=== PATIENT | female | born 1995 | race Caucasian/White ===

== ENCOUNTER → 2021-12-16 | Emergency (ER) | payer OTHER ==
[~2021-12-16] VITALS: Ht 165.1 cm; Wt 49.9 kg
[~2021-12-16] MED LIST: IV NS 0.9% 1,000 ML BAG IV ONE; ZOLP5TAB2 PO
--- NOTE | 2021-12-16 18:57 | NUR ---
BIBS "I WAS TOLD BY MY THERAPIST TO COME HERE BECAUSE I CAN'T FUNCTION, I CAN'T SLEEP, I CAN'T EAT". AMBULATORY, AAOX4, BREATHING EVEN AND UNLABORED SATURATING AT 97%RA.
--- NOTE | 2021-12-16 20:02 | NUR ---
URINE SAMPLE SENT TO LAB
[2021-12-16 20:48] LABS: BASOPHILS % (AUTO) 0.7 % (0.0-2.0); EOSINOPHILS % (AUTO) 1.6 % (0.0-6.0); HEMATOCRIT 41 % (33-45); HEMOGLOBIN 13.3 g/dL (11.5-14.8); LYMPHOCYTES # (AUTO) 1.9 K/uL (0.8-4.8); LYMPHOCYTES % (AUTO) 36.3 % (20.0-44.0); MEAN CORPUSCULAR HGB CONC 33 g/dl (31.0-36.0); MEAN CORPUSCULAR VOLUME 84 fL (82-100); MONOCYTES # (AUTO) 0.3 K/uL (0.1-1.30); NEUTROPHILS # (AUTO) 2.9 K/uL (1.8-8.9); NEUTROPHILS % (AUTO) 55.4 % (43.0-81.0); PLATELET COUNT (AUTO) 201 K/uL (150-450); RED BLOOD CELL COUNT(AUTO) 4.83 MIL/uL (4.0-5.2); WHITE BLOOD COUNT (AUTO) 5.2 K/uL (4.3-11.0)
[2021-12-16 20:50] LABS: BILIRUBIN,URINE NEGATIVE (NEGATIVE); COLOR,URINE YELLOW (YELLOW); LEUKOCYTE ESTERASE ,URINE NEGATIVE (NEGATIVE); NITRITE, URINE NEGATIVE (NEGATIVE); PROTEIN,URINE NEGATIVE (NEGATIVE); UGLUCOSE NEGATIVE (NEGATIVE); UROBILINOGEN,URINE 0.2 EU/dL (0.2)
[2021-12-16 21:05] LABS: ALBUMIN 4.8 g/dL (3.4-5.0); BILIRUBIN,DIRECT 0.2 mg/dL (0.0-0.2); BILIRUBIN,TOTAL 0.9 mg/dL (0.2-1.0); CALCIUM, SERUM 9.5 mg/dL (8.5-10.1); CREATININE 0.8 mg/dL (0.6-1.3); POTASSIUM 3.6 mmol/L (3.5-5.1); TOTAL PROTEIN, SERUM 8.7 g/dL (6.4-8.2)
[2021-12-16 21:08] LABS: THYROID STIMULATING HORMONE 1.85 uIU/mL (0.358-3.74)
[2021-12-16 21:16] LABS: BACTERIA,URINE None seen /HPF (None Seen); RBC,URINE 0-2 /HPF (0-2); SQUAMOUS EPITHELIAL CELL,UR 0-2 /HPF (None Seen); URINE AMORPHOUS PHOSPHATES Few /HPF (None Seen); WBC,URINE 0-2 /HPF (0-3)
[2021-12-16 21:54] VITALS: BP 135/90
--- NOTE | 2021-12-16 21:54 | NUR ---
IV removed. Catheter intact and site benign. Pressure and 4x4 applied to site. No bleeding noted.Patient discharged to home in stable condition. Written and verbal after care instructions given. Patient verbalizes understanding of instruction.
== END | disposition home or self-care (01) ==
LOC: ER 17:10
DX: F41.9 Anxiety disorder, unspecified (principal); F32.A Depression, unspecified; G47.00 Insomnia, unspecified; F90.9 Attention-deficit hyperactivity disorder, unspecified type; Z79.899 Other long term (current) drug therapy
CPT/HCPCS: 99283; 96360; 85025; 80048; 80076; 84703; 81001; 36415; 84443; J7030

== ENCOUNTER 2022-09-06 12:49 | Emergency (ER) | payer BC, OTHER ==
[~2022-09-06] VITALS: Ht 165.1 cm; Wt 55.8 kg
[~2022-09-06 12:49] MED LIST changes: -IV NS 0.9% 1,000 ML BAG IV ONE
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
--- NOTE | 2022-09-06 14:04 | NUR ---
Patient discharged to home in stable condition. Written and verbal after care instructions given. Patient verbalizes understanding of instruction.
[2022-09-06] MEDS ORDERED: CYCL5TAB PO (14:14)
[2022-09-06] MEDS ORDERED: IBUP-1955 PO (14:14)
--- NOTE | 2022-09-06 14:17 | NUR ---
URINE COLLECTED AND SENT
[2022-09-06 14:35] VITALS: BP 131/78
== END 2022-09-06 14:36 | disposition home or self-care (01) ==
LOC: ER 12:50
DX: M79.10 Myalgia, unspecified site (principal); F41.9 Anxiety disorder, unspecified; F31.9 Bipolar disorder, unspecified; V89.2XXA Person injured in unspecified motor-vehicle accident, traffic, initial encounter; Y93.89 Activity, other specified; Y92.411 Interstate highway as the place of occurrence of the external cause; Y99.8 Other external cause status
CPT/HCPCS: 84703-TC